=== PATIENT | female | born 1970 | race Caucasian/White ===

== ENCOUNTER 2022-05-03 08:58 | Emergency (ER) | payer SELFPAY | END 2022-05-03 10:19 | disposition left against medical advice (07) | LOC: ER 08:58 | DX: H92.09 Otalgia, unspecified ear (principal); Z53.21 Procedure and treatment not carried out due to patient leaving prior to being seen by health care provider ==

== ENCOUNTER 2024-09-10 15:48 | Emergency (ER) | payer BC ==
[~2024-09-10] VITALS: Ht 167.6 cm; Wt 92.9 kg
[2024-09-10 15:59] VITALS: BP 147/84; PULSE 98; RESP 18; TEMP 97.6; O2SAT 97
--- NOTE | 2024-09-10 16:10 | Physician Documentation ---
History of Present Illness ~ Chief Complaint: Eye Pain Stated Complaint: L EYE REDNESS Time Seen by MD: 16:27 HPI This is a 54-year-old female who presents with left eye pain and redness after spilling hair dye in her eye, patient reports that she did thoroughly irrigate it after given hair dye in her eye this morning however sometime later when she was using her laptop her eye began to hurt prompting her to come to the emergency department. Patient reports no vision changes including no blurred vision. She states that her left eye just donnelly and she has now had some crusting and increased drainage from the eye. The other associated symptoms. She does not wear contact lenses. Medication Reconciliation Allergies: Coded Allergies: amoxicillin (Verified Allergy, Unknown, 09/10/24) Past Medical History Past Medical History: No Pertinent History Review of Systems All Other Systems at this time: Reviewed and Negative Physical Exam Vital Signs: Temperature: 97.6, Source: Temporal, Heart Rate: 98, Respiratory Rate: 18, BP: 147/84, Pulse Oximetry: 97, Weight: 92.900 Physical Exam I have reviewed the triage vitals. CONST: Well developed and well nourished. In no acute distress HENT: Head Atraumatic EYES: Right eye is normal. The left eye indicates some scleral and conjunctival injection. There is some mild purulent drainage and crusting around the eyelid. There is swelling of the eyelid as well. NECK: Normal range of motion. Supple. CARDIO: Normal rate and regular rhythm. No murmurs, rubs, or gallops. S1, S2. PULM/CHEST: No respiratory distress. Lungs clear to auscultation. No wheeze ABD: Soft and nontender. Nondistended. Bowel sounds normal. No guarding. : Exam deferred MSK: No edema. No deformity. NEURO: Alert and oriented to person, place and time. Moving all extremities SKIN: Warm and dry. PSYCH: Normal mood and affect. Good eye contact. Progress Results/Orders Results/Orders Vital Signs 09/10/24 15:59 Temp 97.6 Pulse 98 Resp 18 B/P (MAP) 147/84 Pulse Ox 97 Medical Decision Making Findings MSE performed in triage and patient returned to ED lobby by nursing staff Additional Comment 54-year-old female presenting with some left eye irritant conjunctivitis with possible superimposed bacterial conjunctivitis now. Patient got some hair dye in there and then irrigated herself extensively. She has since developed some irritation to the eye and may have also introduced some bacteria resulting in some superior and dose bacterial conjunctivitis. This is evident given the crusting and mild purulent drainage. We did perform a full eye exam and did not appreciate any other abnormalities aside from scleral and conjunctival erythema as well as some crusting and drainage. I will go ahead and treat her with Polytrim eye drops. Advised her to also perform warm compresses and monitor for improvement and resolution. Follow up closely with PCP in the next 2-3 days and return to the ED with any acutely worsening symptoms. Departure Disposition: HOME / SELF CARE / HOMELESS Impression: Primary Impression: Conjunctivitis Discharge Instructions: Bacterial Conjunctivitis, Adult, Chemical Conjunctivitis, Adult Referrals: NO PRIMARY CARE PROVIDER (PCP) Prescriptions Polymyxin B Sulfate/Tmp Opth* (Polytrim Ophthalmic Drops*) 10 Ml Bottle 2 DRP LEFTEYE Q4H for 7 Days, EACH Prov: ISA MONTIEL MD 09/10/24 Signature Scribe Signature: 1 Attestation: 1 CHRISTIE EILZALDE [employer] Sep 10, 2024 16:10 ISA MONTIEL MD Sep 10, 2024 16:58
[2024-09-10] MEDS ORDERED: POLOS LEFTEYE (16:59)
== END 2024-09-10 17:09 | disposition home or self-care (01) ==
LOC: ER 15:49
DX: H10.9 Unspecified conjunctivitis (principal); Z88.0 Allergy status to penicillin
CPT/HCPCS: 99283